=== PATIENT | male | born 1975 | race Caucasian/White ===

== ENCOUNTER 2017-07-20 19:36 | Emergency (ER) | payer OTHER ==
[2017-07-20 20:31] VITALS: O2SAT 97
[2017-07-20] MEDS ORDERED: EMTRICITABINE/TENOFOVIR 200MG/300MG TAB PO ONE (21:45)
[2017-07-20] MEDS ORDERED: RALTEGRAVIR 400 MG TAB PO ONE (21:46)
--- NOTE | 2017-07-20 21:49 | EDPHY ---
H & P Time Seen by Provider: 07/20/17 21:07 HPI/ROS: HPI Concerned about HIV exposure. 42-year-old male by private vehicle, homeless sexual encounter 2 nights ago with a another man whom he describes as at risk for HIV, eyes asking for testing for HIV and initiation of anti retroviral therapy. Denies any symptoms at this time. Has no previous medical history. ROS: Constitutional: No fever, no chills. No weakness. Eyes: No discharge. No changes in vision. ENT: No sore throat. No nasal congestion or rhinorrhea. Respiratory: No cough. No shortness of breath. Cardiac: No chest pain, no palpitations. Gastrointestinal: No abdominal pain, no vomiting, no diarrhea. Genitourinary: No hematuria. No dysuria or increased frequency with urination. Musculoskeletal: No back pain. No neck pain. No myalgias or arthralgias. Skin: No rashes. Neurological: No headache. No focal weakness or altered sensation. Past medical history: None. Social history: Nonsmoker. Drinks alcohol socially. As above. Physical Exam: General Appearance: Alert, no distress. This patient is responding to questions appropriately and in full sentences. This patient appears well- hydrated and well-nourished. Eyes: Pupils equal and round no pallor or injection. No lid edema, erythema or injection. ENT, Mouth: Mucous membranes are moist. The pharyngeal tissues are unremarkable. No edema or swelling. No asymmetry suggestive of abscess. No erythema or exudates. No cervical, submental, submandibular lymphadenopathy. Respiratory: There are no retractions, lungs are clear to auscultation with good air movement bilaterally. Cardiovascular: Regular rate and rhythm. No murmur. Gastrointestinal: Abdomen is soft and nontender, no masses, bowel sounds normal. No focal tenderness at McBurney's point. No Alva sign. Neurological: Motor sensory function is grossly intact. Cranial nerves are normal. Gait is normal. Skin: Warm and dry, no rashes. Musculoskeletal: Neck is supple and nontender. Extremities are symmetrical. All joints range without pain or impingement. Psychiatric: No agitation. No depression. Database: EKG: Imaging: Procedures: Emergency department course: Vital signs reviewed and are unremarkable. I spoke with Dr. Perez of the Infectious Disease service. She recommended triple therapy which Truvada and Raltegravir. This was given to the patient in the emergency department. She also requested that we get a complete metabolic panel to evaluate for liver function and renal function. This will be done and checked before administration of medication. They will see the patient on follow-up in their office within the next 1-2 days. HIV testing was also ordered. 11:00 p.m., patient re-evaluated. He feels comfortable going home. He understands his plan for follow-up with the [facility]. I discussed results of his complete metabolic panel. I explained that 1 of his liver function test was slightly elevated. He was given the above medications. I will have Dr. Perez recheck his liver function tests in a few days on follow-up. I discussed medication dosing with him I wrote him prescriptions for 3 days of the above medications. Return to emergency department precautions were discussed. All of his questions were answered. He was discharged in good condition. Differential Diagnosis: The differential diagnosis on this patient includes but is not limited to possible HIV exposure. This represents a partial list of diagnoses considered. These considerations are based on history, physical exam, past history, reassessment and diagnostic testing. Smoking Status: Current some day smoker Constitutional: Initial Vital Signs Temperature (C) 37.1 C 07/20/17 20:26 Heart Rate 80 07/20/17 20:26 Respiratory Rate 18 07/20/17 20:26 Blood Pressure 134/79 H 07/20/17 20:26 O2 Sat (%) 97 07/20/17 20:26 O2 Delivery Mode Room Air Allergies/Adverse Reactions: No Known Allergies Allergy (Unverified 07/20/17 20:26) Home Medications: Medication Instructions Recorded Emtricitabine/Tenofovir [Truvada 1 tab PO DAILY8 #3 tab 07/20/17 200MG/300MG (*)] Raltegravir [Isentress] 400 mg PO BID #6 tab 07/20/17 Medical Decision Making - Data Points Laboratory Results: Laboratory Results 07/20/17 22:30 07/20/17 07/20/17 22:30 22:30 Sodium 138 mEq/L mEq/L (135-145) Potassium 4.0 mEq/L mEq/L (3.5-5.2) Chloride 104 mEq/L mEq/L (97-110) Carbon Dioxide 18 mEq/l L mEq/l (22-31) Anion Gap 16 mEq/L mEq/L (8-16) BUN 15 mg/dL mg/dL (7-23) Creatinine 0.7 mg/dL mg/dL (0.7-1.3) Estimated GFR > 60 Glucose 97 mg/dL mg/dL (70-100) Calcium 9.6 mg/dL mg/dL (8.5-10.4) Total Bilirubin 0.7 mg/dL mg/dL (0.1-1.4) AST 66 IU/L H IU/L (17-59) ALT 63 IU/L IU/L (21-72) Alkaline Phosphatase 68 IU/L IU/L (38-126) Total Protein 7.3 g/dL g/dL (6.3-8.2) Albumin 4.4 g/dL g/dL (3.5-5.0) HIV 1&2 Antibody Pending Departure - Departure Disposition: Home, Routine, Self-Care Clinical Impression: HIV exposure Condition: Good Instructions: Postexposure Prophylaxis (ED) Additional Instructions: Read and follow provided instructions. Follow-up with Dr. Perez, or 1 of her partners at the [facility]. I spoke to her personally elmer. She has your information. Call her clinic at 9:00 a.m. tomorrow morning. Your testing results should be available within the next 1-2 days. Take medication as prescribed. Dr. Perez will repeat your liver function tests and determine if you can be on these medications usp. Have her review your liver function tests that were done elmer in her office. She will have access to these. Return to the emergency department for worsening symptoms or other serious concerns. Referrals: Gabrielle Perez MD [Medical Doctor] - As per Instructions Prescriptions: Emtricitabine/Tenofovir [Truvada 200MG/300MG (*)] 1 tab PO DAILY8 #3 tab Raltegravir [Isentress] 400 mg PO BID #6 tab
[2017-07-20 23:32] VITALS: BP 125/84; PULSE 78; RESP 16; TEMP 98.2
[2017-07-21 01:50] LABS: HIV TYPE 1 AND 2 NEGATIVE (NEGATIVE)
== END 2017-07-20 23:33 | disposition home or self-care (01) ==
DX: Z20.6 Contact with and (suspected) exposure to human immunodeficiency virus [HIV] (principal); F17.200 Nicotine dependence, unspecified, uncomplicated